=== PATIENT | male | born 1950 | race Caucasian/White ===

== ENCOUNTER → 2017-10-05 | Outpatient (CLI) | payer MEDICARE, BC ==
[~2017-10-05] MED LIST: ACET325; HYDR1TAB94; LEVSOD50; PREDNISOLONE 13.5 M1; ROSU10TA
== END | disposition home or self-care (01) ==
LOC: PLD 13:35 → LAB SHORT 13:35
DX: D18.01 Hemangioma of skin and subcutaneous tissue (principal)
CPT/HCPCS: 88305

== ENCOUNTER 2018-01-26 08:18 | Day surgery (SDC) | payer MEDICARE, BC ==
[~2018-01-26] VITALS: Ht 175.3 cm; Wt 80.0 kg
[~2018-01-26 08:18] MED LIST changes: -ACET325
[2018-01-26] MEDS ORDERED: ACET325 (09:15)
== END 2018-01-26 10:35 | disposition home or self-care (01) ==
LOC: ORSCSDS 08:18
PROVIDERS: Internal Medicine Gastroenterology
PROC: 0DBN8ZX Excision of Sigmoid Colon, Via Natural or Artificial Opening Endoscopic, Diagnostic (ICD-10-PCS; principal; 2018-01-26 09:30)
PROC: 0DBL8ZX Excision of Transverse Colon, Via Natural or Artificial Opening Endoscopic, Diagnostic (ICD-10-PCS; principal; 2018-01-26 09:30)
DX: Z12.11 Encounter for screening for malignant neoplasm of colon (principal); D12.3 Benign neoplasm of transverse colon; D12.5 Benign neoplasm of sigmoid colon; K64.8 Other hemorrhoids; Z86.010 Personal history of colon polyps; E05.90 Thyrotoxicosis, unspecified without thyrotoxic crisis or storm; R73.9 Hyperglycemia, unspecified; J45.909 Unspecified asthma, uncomplicated; Z87.891 Personal history of nicotine dependence; Z79.899 Other long term (current) drug therapy
CPT/HCPCS: 88305; J7120

== ENCOUNTER → 2018-10-11 | Outpatient (CLI) | payer MEDICARE, BC ==
[~2018-10-11] MED LIST changes: +ACET325
== END | disposition home or self-care (01) ==
LOC: PLD 13:35 → LAB 13:35 → LAB SHORT 13:35
DX: C44.311 Basal cell carcinoma of skin of nose (principal); L82.1 Other seborrheic keratosis
CPT/HCPCS: 88305

== ENCOUNTER 2019-06-22 06:58 | Day surgery (SDC) | payer MEDICARE, BC ==
[~2019-06-22] VITALS: Ht 175.3 cm; Wt 81.0 kg
[2019-06-22] MEDS ORDERED: META800 (07:14)
[2019-06-22] MEDS ORDERED: LISI5 PO (07:15)
[2019-06-22] MEDS ORDERED: MELATONIN5 M1 (07:16)
--- NOTE | 2019-06-22 11:25 | NUR ---
RIGHT RADIAL TR BAND SITE SOFT NON-TENDER WITH NO HEMATOMA NO PULSATILE BLEEDING. PT AMBULATED TO BR TO VOID.
--- NOTE | 2019-06-22 11:45 | NUR ---
DR SILVA IN ROOM DISCUSSING PLAN OF CARE WITH PT AND FAMILY. VSS. NADN. PT DENIES NEEDS. R RADIAL SITE REMAINS CLEAR.
--- NOTE | 2019-06-22 13:30 | NUR ---
PT TR BAND FULLY DEFLATED. NO BLEEDING OR HEMATOMA NOTED. VSS. NADN. PT UP TO RESTROOM AND BACK WITHOUT DIFF.
[2019-06-22] MEDS ORDERED: ASPI81CH PO (13:45)
[2019-06-22] MEDS ORDERED: CLOP75 PO (13:45)
--- NOTE | 2019-06-22 14:29 | NUR ---
PT AND S/O VERBALIZES UNDERSTANDING WRITTEN AND VERBAL ORDERS. PT R RADIAL SITE REMAINS CLEAR. BARRY. NEVILLE.
--- NOTE | 2019-06-22 14:55 | NUR ---
PT TR BAND REMOVED. DOT DRESSING IN PLACE WITH SPLINT AND SLING. PT DRESSES SELF WITHOUT DIFF. AMBULATES TO AND FROM RESTROOM. PT ESCORTED OUT BY S/O IN WC.
== END 2019-06-22 22:53 | disposition home or self-care (01) ==
LOC: MHTC 06:58
DX: I25.119 Atherosclerotic heart disease of native coronary artery with unspecified angina pectoris (principal); I10 Essential (primary) hypertension; I25.10 Atherosclerotic heart disease of native coronary artery without angina pectoris; G43.019 Migraine without aura, intractable, without status migrainosus; J44.9 Chronic obstructive pulmonary disease, unspecified; E03.9 Hypothyroidism, unspecified; E78.5 Hyperlipidemia, unspecified; Z87.891 Personal history of nicotine dependence; Z79.899 Other long term (current) drug therapy; Z79.52 Long term (current) use of systemic steroids
CPT/HCPCS: 76937; 85347; 92978; 93454; 93571; 99152; 99153; C1725; C1753; C1769; C1874; C1887; C1894; C9600; J1644; J2250; J3010; J7030; Q9967

== ENCOUNTER → 2019-11-01 | Outpatient (CLI) | payer MEDICARE, BC ==
[~2019-11-01] MED LIST changes: +ASPI81CH PO; +CLOP75 PO; +LISI5 PO; +MELATONIN5 M1; +META800
== END | disposition home or self-care (01) ==
LOC: LAB SHORT 15:42 → PLD 15:42
DX: D48.5 Neoplasm of uncertain behavior of skin (principal)
CPT/HCPCS: 88305

== ENCOUNTER → 2021-03-05 | Outpatient (CLI) | payer MEDICARE, BC | LOC: LAB 11:16 → LAB SHORT 11:16 | DX: L57.0 Actinic keratosis (principal); C44.319 Basal cell carcinoma of skin of other parts of face | CPT/HCPCS: 88305 ==

== ENCOUNTER → 2021-03-27 | Outpatient (CLI) | payer MEDICARE, BC | END | disposition home or self-care (01) | LOC: LAB 12:20 → LAB SHORT 12:20 | DX: C44.319 Basal cell carcinoma of skin of other parts of face (principal) | CPT/HCPCS: 88305 ==

== ENCOUNTER → 2021-12-16 | Outpatient (CLI) | payer MEDICARE, BC ==
[2021-12-17 09:28] LABS: Stool Occult Blood Guaiac 1 Neg (Neg)
[2021-12-17 09:29] LABS: Stool Occult Blood Guaiac 2 Neg (Neg)
[2021-12-17 09:30] LABS: Stool Occult Blood Guaiac 3 Neg (Neg)
== END | disposition home or self-care (01) ==
LOC: LAB SHORT 13:38 → LAB 13:38
PROVIDERS: Physician Assistant
DX: K92.1 Melena (principal)
CPT/HCPCS: 82272

== ENCOUNTER → 2022-06-24 | Outpatient (CLI) | payer MEDICARE, BC | END | disposition home or self-care (01) | LOC: LAB SHORT 11:11 → PLD 11:11 | DX: L82.0 Inflamed seborrheic keratosis (principal) | CPT/HCPCS: 88305 ==

== ENCOUNTER → 2023-09-15 | Outpatient (CLI) | payer MEDICARE, BC | LOC: LAB SHORT 09:39 → LAB 09:39 | DX: L82.1 Other seborrheic keratosis (principal) | CPT/HCPCS: 88305 ==